=== PATIENT | male | born 1980 | race Hispanic/Latino ===

== ENCOUNTER 2018-10-09 16:03 | Emergency (ER) | payer SELFPAY ==
[2018-10-09] MEDS ORDERED: FENTANYL CITR 100 MCG/2 ML ONE ×2 (16:18→17:58)
--- NOTE | 2018-10-09 16:47 | RAD REPORT ---
EXAM DESCRIPTION: CT - CTHCSPWOC - 10/09/2018 4:32 pm CLINICAL HISTORY: Blunt force trauma to the head and neck, headache COMPARISON: None. TECHNIQUE: Axial 5 mm thick images of the head were obtained. Axial 2 mm thick images of the cervic al spine were obtained with sagittal and coronal reconstruction images generated and reviewed. All CT scans are performed using dose optimization technique as appropriate and may include automated exposure control or mA/KV adjustment according to patient size. FINDINGS: No intracranial hemorrhage, mass, edema or acute intracranial finding. Ventricles are normal. No extr a-axial fluid collections. Mastoid air cells and paranasal sinuses are clear. No globe or orbit abnor mality seen. Cervical body height and alignment are normal. No disk space narrowing. No fracture or acute bony abn ormality. Central canal detail is inherently limited. No paraspinal mass or hematoma. IMPRESSION: Negative CT head examination for acute or significant finding. Negative CT cervical spine examination for acute or significant finding.
--- NOTE | 2018-10-09 16:48 | RAD REPORT ---
EXAM DESCRIPTION: CT - Thorax Wo Con - 10/09/2018 4:32 pm CLINICAL HISTORY: Pain, chest trauma COMPARISON: None. TECHNIQUE: Axial 5 mm thick images of the chest were obtained without IV contrast. All CT scans are performed using dose optimization technique as appropriate and may include automated exposure control or mA/KV adjustment according to patient size. FINDINGS: No mass or infiltrate in the lung parenchyma. No pleural thickening or pleural effusion. N o pneumothorax. No abnormal mediastinal or hilar masses or lymphadenopathy seen. No gross aortic or pulmonary artery finding suspected. Assessment is limited in the absence of IV contrast. No chest wall mass or abnormal axillary lymphadenopathy. IMPRESSION: Negative non-contrast CT chest examination.
--- NOTE | 2018-10-09 17:35 | RAD REPORT ---
EXAM DESCRIPTION: RAD - Chest Single View - 10/09/2018 4:18 pm CLINICAL HISTORY: Chest pain, trauma COMPARISON: None. TECHNIQUE: AP portable chest image was obtained 1616 hours . FINDINGS: Lungs are clear. Heart and vasculature are normal. No measurable pleural effusion and no p neumothorax. No acute bony abnormality seen. No acute aortic findings suspected. IMPRESSION: No acute cardiopulmonary process.
--- NOTE | 2018-10-09 17:57 | ER ---
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 Care prior to arrival: Cervical collar in place. Placed on backboard. Mechanism of Injury: blunt force injury w/ ratchet to head/hard hat. Trauma event details: Injury occurred in the [facility], Injury occurred: in an industrial place of business Injury occurred: October 09, 2018. 16:07 Acuity: MASSIMO 2 ph 16:07 Method Of Arrival: EMS: [facility] 16:24 Transition of care: patient was not received from another setting of care. Onset of ph symptoms was October 09, 2018. Risk Assessment: Do you want to hurt yourself or someone else? Patient reports no desire to harm self or others. Initial Sepsis Screen: Does the patient meet any 2 criteria? No. Patient's initial sepsis screen is negative. Does the patient have a suspected source of infection? No. Patient's initial sepsis screen is negative. Trauma Activation: Alert Physician: ED Physician; Name: Dee Dee; Notified At: ; Arrived At: Physician: General Surgeon; Name: ; Notified At: ; Arrived At: Physician: Radiology; Name: Hemalatha; Notified At: ; Arrived At: Physician: Respiratory; Name: ; Notified At: ; Arrived At: Physician: Lab; Name: ; Notified At: ; Arrived At: Historical: - Allergies: 16:12 No Known Allergies; ph - Home Meds: 16:12 None [Active]; ph - PMHx: 16:12 None; ph - Immunization history: Last tetanus immunization: unknown. - Social history:: Smoking status: Patient/guardian denies using tobacco. - Ebola Screening: : No symptoms or risks identified at this time. Screenin:20 Abuse screen: Denies threats or abuse. Denies injuries from another. Tuberculosis ph screening: No symptoms or risk factors identified. 16:27 Nutritional screening: No deficits noted. Fall Risk No fall in past 12 months (0 pts). ph No secondary diagnosis (0 pts). IV access (20 points). Ambulatory Aid- None/Bed Rest/Nurse Assist (0 pts). Gait- Weak (10 pts.). Mental Status- Oriented to own ability (0 pts). Total Paz Fall Scale indicates No Risk (0-24 pts). Primary Survey: 16:16 NO uncontrolled hemorrhage observed. A: The patient is alert. Airway: patent, No ph supplemental oxygen in use on arrival. Oral cavity: clear, Trachea midline. Breathing/Chest: Respiratory pattern: regular, Respiratory effort: spontaneous, unlabored, Breath sounds: clear, bilaterally. Chest inspection: symmetrical rise and fall of the chest. Circulation: Pulses: palpable right radial artery, right dorsalis pedis artery, left radial artery and left dorsalis pedis artery. Disability Alert. Exposure/Environment: All clothing and personal items were removed. Forensic evidence collection is not deemed to be indicated at this time. Items placed in patient belonging bag. There is no evidence of uncontrolled external bleeding. A warming method has been applied: A warm blanket has been provided to the patient. 18:19 Reassessment Breathing/Chest Respiratory pattern Regular Respiratory effort Spontaneous ph Unlabored Breath sounds Clear Chest inspection Symmetrical Circulation Color [place] Temperature Warm Dry Disability Alert. Secondary Survey: 16:18 HEENT: Head Other no injury or deformity noted but pt c/o severe headache in frontal ph and occipital area. Gastrointestinal: No deficits noted. Abdomen is soft, flat, Bowel sounds present in all quadrants. Musculoskeletal: Circulation, motion, and sensation intact. Range of motion: intact in all extremities, Reports numbness in left side of head, left arm and left leg. Assessment: 16:10 General: Appears in no apparent distress. uncomfortable, well groomed, Behavior is ph cooperative, appropriate for age, anxious. Pain: Complains of pain in top of head, left parietal area, right parietal area and occipital area. Neuro: Level of Consciousness is awake, alert, obeys commands, Oriented to person, place, time, situation, Chief Jailer are weak on left Moves all extremities. Speech is normal, Facial symmetry appears normal, Pupils are PERRLA, paresthesias in left leg and left arm and left side of head Reports dizziness, headache. Cardiovascular: Capillary refill < 3 seconds in bilateral fingers Patient's skin is warm and dry. Pulses are all present. Respiratory: Airway is patent Respiratory effort is even, unlabored, Denies shortness of breath pain with respiration, pain with movement. GI: No signs and/or symptoms were reported involving the gastrointestinal system. Patient currently denies abdominal pain, nausea. Derm: Skin is intact, is healthy with good turgor, Skin is pink, warm \\T\\ dry. Musculoskeletal: Circulation, motion, and sensation intact. Range of motion: intact in all extremities. 16:17 Reassessment: Pt to CT now VIA stretcher. C collar remains in place. 16:58 Reassessment: Patient appears in no apparent distress at this time. Patient and/or ph family updated on plan of care and expected duration. Pain level reassessed. Patient is alert, oriented x 3, equal unlabored respirations, skin warm/dry/pink. Pt c/o pain in head 8/10 (down from 10/10) and requesting additional pain medication, denies nausea, ERP notified, see MAR. 17:23 Reassessment: Patient appears in no apparent distress at this time. Patient and/or ph family updated on plan of care and expected duration. Pain level reassessed. Patient is alert, oriented x 3, equal unlabored respirations, skin warm/dry/pink. Co-workers at bedside. 18:00 Reassessment: Report called to MELISSA Stover at [facility]. 18:15 Reassessment: Patient appears in no apparent distress at this time. Patient and/or ph family updated on plan of care and expected duration. Pain level reassessed. Patient is alert, oriented x 3, equal unlabored respirations, skin warm/dry/pink. Coworkers at bedside requesting that pt be released into their care, states, " Can he be released to us and we take him [place]?" Explained transfer process to pt and why that was not possible, pt agrees to be transferred. 18:21 Reassessment: Patient appears in no apparent distress at this time. Patient and/or ph family updated on plan of care and expected duration. Pain level reassessed. Neuro: Level of Consciousness is awake, alert, obeys commands, Oriented to person, place, time, situation, Chief Jailer are weak on left Moves all extremities. Reports headache paresthesias in left leg and left arm and left side of head. 18:46 Reassessment: EMS at bedside, pt refusing transfer at this time, states, " I want to ph leave in the care of my company." ERP notified and at bedside to speak w/ pt, pt continues to state that he wishes to be d/c into the care of employer, pt to leave AMA. 19:01 Reassessment: Patient appears in no apparent distress at this time. Patient is alert, ph oriented x 3, equal unlabored respirations, skin warm/dry/pink. Risks of leaving AMA explained to pt, pt continues to state that he wishes to leave in care of company/employer, AMA form signed by pt, pt left ED w/ c-collar in place. Vital Signs: 16:13 BP 115 / 57; Pulse 64; Resp 20; Temp 98.7; Pulse Ox 96% on R/A; Weight 90.72 kg; Height ph 5 ft. 8 in. (172.72 cm); Pain 10/10; 17:01 BP 118 / 66; Pulse 75; Resp 18; Pulse Ox 97% on R/A; Pain 8/10; ph 18:00 BP 120 / 87; Pulse 71; Resp 18; Pulse Ox 99% on R/A; ph 19:00 BP 118 / 68; Pulse 72; Resp 18; Temp 98.2; Pulse Ox 99% on R/A; ph 16:13 Body Mass Index 30.41 (90.72 kg, 172.72 cm) ph Radha Coma Score: 16:13 Eye Response: spontaneous(4). Verbal Response: oriented(5). Motor Response: obeys ph commands(6). Total: 15. 17:01 Eye Response: spontaneous(4). Verbal Response: oriented(5). Motor Response: obeys ph commands(6). Total: 15. 17:46 Eye Response: spontaneous(4). Verbal Response: oriented(5). Motor Response: obeys gs commands(6). Total: 15. 17:46 Eye Response: spontaneous(4). Verbal Response: oriented(5). Motor Response: obeys gs commands(6). Total: 15. 18:00 Eye Response: spontaneous(4). Verbal Response: oriented(5). Motor Response: obeys ph commands(6). Total: 15. 19:00 Eye Response: spontaneous(4). Verbal Response: oriented(5). Motor Response: obeys ph commands(6). Total: 15. Trauma Score (Adult): 16:13 Eye Response: spontaneous(1); Verbal Response: oriented(1); Motor Response: obeys ph commands(2); Systolic BP: > 89 mm Hg(4); Respiratory Rate: 10 to 29 per min(4); Radha Score: 15; Trauma Score: 12 17:01 Eye Response: spontaneous(1); Verbal Response: oriented(1); Motor Response: obeys ph commands(2); Systolic BP: > 89 mm Hg(4); Respiratory Rate: 10 to 29 per min(4); [place] Score: 15; Trauma Score: 12 18:00 Eye Response: spontaneous(1); Verbal Response: oriented(1); Motor Response: obeys ph commands(2); Systolic BP: > 89 mm Hg(4); Respiratory Rate: 10 to 29 per min(4); [place] Score: 15; Trauma Score: 12 19:00 Eye Response: spontaneous(1); Verbal Response: oriented(1); Motor Response: obeys ph commands(2); Systolic BP: > 89 mm Hg(4); Respiratory Rate: 10 to 29 per min(4); [place] Score: 15; Trauma Score: 12 ED Course: 16:04 Patient arrived in ED. bd 16:07 Deanna Murphy, MELISSA is Primary Nurse. ph 16:07 Dwayne Funez MD is Attending Physician. gs 16:12 Triage completed. ph 16:18 XRAY CXR (1 view) In Process Unspecified. EDMS 16:24 Arm band placed on. ph 16:25 Patient has correct armband on for positive identification. Bed in low position. Call ph light in reach. Side rails up X2. alarm security or surveillance monitor on. Pulse ox on. NIBP on. Warm blanket given. 16:26 Patient maintains SpO2 saturation greater than 95% on room air. Thermoregulation: warm ph blanket given to patient. 16:33 Head C Spine MPR Wo Con CT In Process Unspecified. EDMS 16:33 CT Chest Wo Con In Process Unspecified. EDMS 18:17 No provider procedures requiring assistance completed. Patient transferred, IV remains ph in place. Administered Medications: 16:10 Drug: fentaNYL (PF) 50 mcg Route: IVP; Site: right antecubital; ss 16:30 Follow up: Response: No adverse reaction; Pain is decreased ph 16:54 Drug: fentaNYL (PF) 50 mcg Route: IVP; Site: right antecubital; ph 17:15 Follow up: Response: No adverse reaction; Pain is decreased ph 17:56 Drug: fentaNYL (PF) 50 mcg Route: IVP; Site: right antecubital; ph 18:30 Follow up: Response: No adverse reaction; Pain is decreased ph Intake: 16:13 PO: 0ml; Total: 0ml. ph 17:01 PO: 0ml; Total: 0ml. ph 18:00 PO: 0ml; Total: 0ml. ph 19:00 PO: 0ml; Total: 0ml. ph Output: 16:13 Urine: 0ml; Total: 0ml. ph 17:01 Urine: 0ml; Total: 0ml. ph 18:00 Urine: 0ml; Total: 0ml. ph 19:00 Urine: 0ml; Total: 0ml. ph Outcome: 17:55 ER care complete, transfer ordered by . 19:16 AMA AMA form signed ph 19:16 Condition: Pt refusing transfer for further testing and is leaving AMA, VSS and GCS 15 when pt left ED 19:26 Patient left the ED. ph Signatures: Dispatcher [employer] EDMS Sophia Sanabria Shelby, RN RN Deanna Murphy RN RN ph Funez, MD BRUNA Rice Corrections: (The following items were deleted from the chart) 19:12 19:01 Reassessment: Patient appears in no apparent distress at this time. Patient is ph alert, oriented x 3, equal unlabored respirations, skin warm/dry/pink. AMA form signed by pt, pt left ED w/ c-collar in place ph 19:12 18:15 Reassessment: Patient appears in no apparent distress at this time. Patient ph and/or family updated on plan of care and expected duration. Pain level reassessed. Patient is alert, oriented x 3, equal unlabored respirations, skin warm/dry/pink. ph
--- NOTE | 2018-10-09 17:57 | EDPHYS ---
Physician Documentation [facility] Name: Britton Stone Age: 38 yrs Sex: Male : 1980 Arrival Date: 10/09/2018 Time: 16:04 Bed 3 Private MD: ED Physician Dwayne Funez HPI: 10/09 17:46 This 38 yrs old Male presents to ER via EMS with complaints of head injury. gs 17:46 The patient or guardian reports injury, wrench fell 50-75 feet hit pt in head was gs wearing hard hat. The complaints affect the top of head. Context of injury: The problem was sustained at work. Onset: The symptoms/episode began/occurred acutely, just prior to arrival. Associated signs and symptoms: Loss of consciousness: This patient experience a loss of consciousness, that was prolonged, for 1 minute(s). Severity of symptoms: At their worst the symptoms were severe, in the emergency department the symptoms have improved, markedly. The patient has not experienced similar symptoms in the past. Historical: - Allergies: 16:12 No Known Allergies; ph - Home Meds: 16:12 None [Active]; ph - PMHx: 16:12 None; ph - Immunization history: Last tetanus immunization: unknown. - Social history:: Smoking status: Patient/guardian denies using tobacco. - Ebola Screening: : No symptoms or risks identified at this time. ROS: 17:46 Neuro: Positive for tingling, weakness, of the left arm. gs 17:46 All other systems are negative. Exam: 17:46 Head/Face: Normocephalic, atraumatic. Eyes: Pupils equal round and reactive to light, gs extra-ocular motions intact. Lids and lashes normal. Conjunctiva and sclera are non-icteric and not injected. Cornea within normal limits. Periorbital areas with no swelling, redness, or edema. ENT: Nares patent. No nasal discharge, no septal abnormalities noted. Tympanic membranes are normal and external auditory canals are clear. Oropharynx with no redness, swelling, or masses, exudates, or evidence of obstruction, uvula midline. Mucous membranes moist. Neck: Trachea midline, no thyromegaly or masses palpated, and no cervical lymphadenopathy. Supple, full range of motion without nuchal rigidity, or vertebral point tenderness. No Meningismus. Chest/axilla: Normal chest wall appearance and motion. Nontender with no deformity. No lesions are appreciated. Cardiovascular: Regular rate and rhythm with a normal S1 and S2. No gallops, murmurs, or rubs. Normal PMI, no JVD. No pulse deficits. Respiratory: Lungs have equal breath sounds bilaterally, clear to auscultation and percussion. No rales, rhonchi or wheezes noted. No increased work of breathing, no retractions or nasal flaring. Abdomen/GI: Soft, non-tender, with normal bowel sounds. No distension or tympany. No guarding or rebound. No evidence of tenderness throughout. Back: No spinal tenderness. No costovertebral tenderness. Full range of motion. Skin: Warm, dry with normal turgor. Normal color with no rashes, no lesions, and no evidence of cellulitis. MS/ Extremity: Pulses equal, no cyanosis. Neurovascular intact. Full, normal range of motion. 17:46 Constitutional: The patient appears alert, awake. 17:46 Head/face: Noted is tenderness, that is mild, of the top of head. 17:46 Neuro: Orientation: is normal, to person, place, time \T\ situation. Memory: is normal, Cranial nerves: CN II- XII are normal as tested, Cerebellar function: is grossly normal, Motor: moves all fours, strength is 4/5 in the left hand, Sensation: tingling, that is moderate, of the left arm and left leg. Vital Signs: 16:13 BP 115 / 57; Pulse 64; Resp 20; Temp 98.7; Pulse Ox 96% on R/A; Weight 90.72 kg; Height ph 5 ft. 8 in. (172.72 cm); Pain 10/10; 17:01 BP 118 / 66; Pulse 75; Resp 18; Pulse Ox 97% on R/A; Pain 8/10; ph 18:00 BP 120 / 87; Pulse 71; Resp 18; Pulse Ox 99% on R/A; ph 19:00 BP 118 / 68; Pulse 72; Resp 18; Temp 98.2; Pulse Ox 99% on R/A; ph 16:13 Body Mass Index 30.41 (90.72 kg, 172.72 cm) ph Radha Coma Score: 16:13 Eye Response: spontaneous(4). Verbal Response: oriented(5). Motor Response: obeys ph commands(6). Total: 15. 17:01 Eye Response: spontaneous(4). Verbal Response: oriented(5). Motor Response: obeys ph commands(6). Total: 15. 17:46 Eye Response: spontaneous(4). Verbal Response: oriented(5). Motor Response: obeys gs commands(6). Total: 15. 17:46 Eye Response: spontaneous(4). Verbal Response: oriented(5). Motor Response: obeys gs commands(6). Total: 15. 18:00 Eye Response: spontaneous(4). Verbal Response: oriented(5). Motor Response: obeys ph commands(6). Total: 15. 19:00 Eye Response: spontaneous(4). Verbal Response: oriented(5). Motor Response: obeys ph commands(6). Total: 15. Trauma Score (Adult): 16:13 Eye Response: spontaneous(1); Verbal Response: oriented(1); Motor Response: obeys ph commands(2); Systolic BP: > 89 mm Hg(4); Respiratory Rate: 10 to 29 per min(4); Radha Score: 15; Trauma Score: 12 17:01 Eye Response: spontaneous(1); Verbal Response: oriented(1); Motor Response: obeys ph commands(2); Systolic BP: > 89 mm Hg(4); Respiratory Rate: 10 to 29 per min(4); Radha Score: 15; Trauma Score: 12 18:00 Eye Response: spontaneous(1); Verbal Response: oriented(1); Motor Response: obeys ph commands(2); Systolic BP: > 89 mm Hg(4); Respiratory Rate: 10 to 29 per min(4); [place] Score: 15; Trauma Score: 12 19:00 Eye Response: spontaneous(1); Verbal Response: oriented(1); Motor Response: obeys ph commands(2); Systolic BP: > 89 mm Hg(4); Respiratory Rate: 10 to 29 per min(4); Radha Score: 15; Trauma Score: 12 MDM: 16:15 Patient medically screened. gs 17:46 Differential diagnosis: Contusion of Intracranial bleed- Concussion cerebral contusion, gs ligamentous spinal injury. Data reviewed: vital signs, nurses notes. Response to treatment: the patient's symptoms have markedly improved after treatment, and as a result, I will transfer. 10/09 16:05 Order name: Head C Spine MPR Wo Con CT; Complete Time: 17:33 bd 10/09 16:07 Order name: CT Chest Wo Con; Complete Time: 17:33 gs 10/09 16:12 Order name: XRAY CXR (1 view); Complete Time: 17:45 gs Administered Medications: 16:10 Drug: fentaNYL (PF) 50 mcg Route: IVP; Site: right antecubital; ss 16:30 Follow up: Response: No adverse reaction; Pain is decreased ph 16:54 Drug: fentaNYL (PF) 50 mcg Route: IVP; Site: right antecubital; ph 17:15 Follow up: Response: No adverse reaction; Pain is decreased ph 17:56 Drug: fentaNYL (PF) 50 mcg Route: IVP; Site: right antecubital; ph 18:30 Follow up: Response: No adverse reaction; Pain is decreased ph Disposition: 10/09/18 19:26 Patient has left against medical advice. - Patients states they are going to Home. - Condition is Undetermined. Signatures: Dispatcher [employer] EDMariaelena Gann RN RN ss Deanna Murphy RN RN Dwayne Funez MD MD Corrections: (The following items were deleted from the chart) : 17:55 10/09/2018 17:55 Transfer ordered to [facility]. ph Diagnosis is Concussion with loss of consciousness of 30 minutes or less; Mononeuropathies of upper limb; Mononeuropathies of lower limb. Reason for transfer: Higher level of care. Accepting physician is geoff. Condition is Stable. Problem is new. Symptoms have improved. 19:26 19:26 10/09/2018 19:26 Patients has left against medical advice. Patient states they ph are going to Home. Condition is Undetermined. ph
== END 2018-10-09 19:26 | disposition left against medical advice (07) ==
LOC: ER 16:03
DX: S09.90XA Unspecified injury of head, initial encounter (principal); W22.8XXA Striking against or struck by other objects, initial encounter; Y93.89 Activity, other specified; Y92.89 Other specified places as the place of occurrence of the external cause; Y99.8 Other external cause status
CPT/HCPCS: 70450; 71045; 71250; 72125; 96374; 99285; J3010

== ENCOUNTER 2018-10-11 07:46 | Emergency (ER) | payer SELFPAY ==
[2018-10-11] MEDS ORDERED: HYDROCODONE/APAP 7.5/325 MG TAB ONE (08:39)
--- NOTE | 2018-10-11 11:22 | RAD REPORT ---
EXAM DESCRIPTION: MRI - Brain Wo Cont - 10/11/2018 11:12 am CLINICAL HISTORY: Trauma;Headache COMPARISON: Head C Spine Mpr Wo Con dated 10/09/2018; Thorax Wo Con dated 10/09/2018 TECHNIQUE: Multi-sequence, multiplanar MR imaging of the brain was performed without contrast. FINDINGS: No intracranial hemorrhage, hydrocephalus or extra-axial fluid collections. No edema or sh ift of midline structures. No findings to suspect brain mass. DWI is negative for acute CVA. Midline structures are normally formed. Mastoid air cells and paranasal sinuses are clear. IMPRESSION: No acute or concerning intracranial abnormalities.
--- NOTE | 2018-10-11 11:29 | ER ---
Nurse's Notes [facility] Name: Britton Stone Age: 38 yrs Sex: Male : 1980 Arrival Date: 10/11/2018 Time: 07:49 Bed 6 Private MD: None, None Diagnosis: Headache;Concussion Presentation: 10/11 07:55 Presenting complaint: Patient states: i was here Thursday, for the same problem, hj headache (related to head injury), CT was negative; now my headache is worse; 8/10 pain; neck hurts, tingling to arms and legs; reports nausea; denies taking pain meds [employer]; per pt, MRI not done;. Transition of care: patient was not received from another setting of care. Onset of symptoms was October 11, 2018. Risk Assessment: Do you want to hurt yourself or someone else? Patient reports no desire to harm self or others. Initial Sepsis Screen: Does the patient meet any 2 criteria? No. Patient's initial sepsis screen is negative. Does the patient have a suspected source of infection? No. Patient's initial sepsis screen is negative. Care prior to arrival: None. 07:55 Method Of Arrival: Ambulatory 07:55 Acuity: MASSIMO 3 hj Triage Assessment: 07:58 Headache History: Denies prior headaches. General: Appears in no apparent distress. hj uncomfortable, Behavior is calm, cooperative, appropriate for age. Pain: Complains of pain in head Pain currently is 7 out of 10 on a pain scale. Pain began 2-3 days ago. Also complains of nausea. Neuro: Level of Consciousness is awake, alert, obeys commands, Oriented to person, place, time, situation, Appropriate for age. Historical: - Allergies: 07:58 No Known Allergies; hj - Home Meds: 07:58 None [Active]; hj - PMHx: 07:58 None; hj - PSHx: 07:58 None; hj - Immunization history:: Adult Immunizations up to date. - Social history:: Smoking status: Patient/guardian denies using tobacco, Patient/guardian denies using alcohol. - Ebola Screening: : Patient negative for fever greater than or equal to 101.5 degrees Fahrenheit, and additional compatible Ebola Virus Disease symptoms Patient denies exposure to infectious person Patient denies travel to an Ebola-affected area in the 21 days before illness onset. Screenin:59 Abuse screen: Denies threats or abuse. Denies injuries from another. Nutritional hj screening: No deficits noted. Tuberculosis screening: No symptoms or risk factors identified. Fall Risk None identified. Assessment: 08:05 General: Appears in no apparent distress. uncomfortable, Behavior is calm, cooperative, ca1 appropriate for age. Pain: Complains of pain in head, neck Pain currently is 9 out of 10 on a pain scale. Quality of pain is described as. Pain: Pain began 1900H, 10/10/2018. Neuro: Level of Consciousness is awake, alert, obeys commands, Oriented to person, place, time, situation. Cardiovascular: Heart tones S1 S2 Capillary refill < 3 seconds Patient's skin is warm and dry. Respiratory: Airway is patent Trachea midline Respiratory effort is even, unlabored, Respiratory pattern is regular, symmetrical, Breath sounds are clear bilaterally. GI: Abdomen is round non-distended, Bowel sounds present X 4 quads. Abd is soft and non tender X 4 quads. Reports vomiting, once. : No signs and/or symptoms were reported regarding the genitourinary system. EENT: No signs and/or symptoms were reported regarding the EENT system. Derm: Skin is intact, is healthy with good turgor, Skin is pink, warm \T\ dry. Musculoskeletal: Circulation, motion, and sensation intact. Capillary refill < 3 seconds, Range of motion: intact in all extremities. 08:41 Reassessment: Patient appears in no apparent distress at this time. Patient and/or ca1 family updated on plan of care and expected duration. Pain level reassessed. Patient is alert, oriented x 3, equal unlabored respirations, skin warm/dry/pink. 09:27 Reassessment: Patient appears in no apparent distress at this time. Patient and/or ca1 family updated on plan of care and expected duration. Pain level reassessed. Patient is alert, oriented x 3, equal unlabored respirations, skin warm/dry/pink. Awaiting MRI. Called MRI, said it will be around 1000H. Informed patient. 10:05 Reassessment: Patient went to restroom. Still for MRI. ca1 10:15 Reassessment: patient taken to MRI by wheelchair. ca1 11:08 Reassessment: Patient appears in no apparent distress at this time. Patient is alert, ca1 oriented x 3, equal unlabored respirations, skin warm/dry/pink. Patient back from MRI. Vital Signs: 07:59 BP 140 / 78; Pulse 82; Resp 18; Temp 97.7(TE); Pulse Ox 99% on R/A; Weight 90.72 kg; hj Height 5 ft. 8 in. (172.72 cm); Pain 8/10; 08:41 BP 106 / 72; Pulse 72; Resp 19; Pulse Ox 100% on R/A; Pain 9/10; ca1 09:27 BP 125 / 80; Pulse 80; Resp 18; Pulse Ox 96% on R/A; ca1 10:05 BP 114 / 68; Pulse 82; Resp 19; Pulse Ox 100% on R/A; Pain 9/10; ca1 11:11 BP 111 / 61; Pulse 60; Resp 19; Pulse Ox 100% on R/A; ca1 07:59 Body Mass Index 30.41 (90.72 kg, 172.72 cm) hj Radha Coma Score: 08:35 Eye Response: spontaneous(4). Verbal Response: oriented(5). Motor Response: obeys kb commands(6). Total: 15. 08:37 Eye Response: spontaneous(4). Verbal Response: oriented(5). Motor Response: obeys kb commands(6). Total: 15. ED Course: 07:49 Patient arrived in ED. mr 07:49 None, None is Private Physician. mr 07:58 Triage completed. hj 07:59 Arm band placed on right wrist. hj 07:59 Patient has correct armband on for positive identification. Bed in low position. Call light in reach. Side rails up X 1. 08:04 Jazmyn Stover FNP-C [facility]. kb 08:04 Grant Zeigler MD is Attending Physician. kb 08:05 Reema Pickard, MELISSA is Primary Nurse. ca1 08:05 Pulse ox on. NIBP on. ca1 11:13 MRI - Brain Wo Cont In Process Unspecified. EDMS 11:50 No provider procedures requiring assistance completed. ca1 11:50 Patient did not have IV access during this emergency room visit. ca1 Administered Medications: 08:29 Drug: [place] (7.5 mg-325 mg) 1 tabs Route: PO; ca1 10:05 Follow up: Response: No adverse reaction; Pain is unchanged, physician notified ca1 Outcome: 11:28 Discharge ordered by MD. cabrera 11:50 Discharged to home ambulatory. ca1 11:50 Condition: stable 11:50 Discharge instructions given to patient, Instructed on discharge instructions, follow up and referral plans. medication usage, Demonstrated understanding of instructions, follow-up care, medications, Prescriptions given X 1. 11:56 Patient left the ED. aa5 Signatures: Dispatcher [employer] EDMS Jazmyn Stover, LAWYERS-C LAWYERS-Loyda Preethi Shaikh, Carli, RN RN aa5 Seth Aponte, RN RN Reema Pickard RN RN ca1 Corrections: (The following items were deleted from the chart) 08:10 07:55 Presenting complaint: Patient states: i was here Thursday, for the same problem, hj headache (related to head injury), CT was negative; now my headache is worse; 8/10 pain; neck hurts, tingling to arms and legs; reports nausea; denies taking pain meds [employer]; hj 10:23 10:15 Reassessment: patient taken to by wheelchair. ca1 ca1
--- NOTE | 2018-10-11 11:29 | EDPHYS ---
Physician Documentation [facility] Name: Britton Stone Age: 38 yrs Sex: Male : 1980 Arrival Date: 10/11/2018 Time: 07:49 Bed 6 Private MD: None, None ED Physician Grant Ziegler HPI: 10/11 08:37 This 38 yrs old Male presents to ER via Ambulatory with complaints of Headache.kb 08:37 The patient or guardian reports injury, pain, tenderness. The complaints affect the kb left side of head. Context of injury: The problem was sustained at work, resulted from a direct blow, wrench that fell 50ft. Onset: The symptoms/episode began/occurred 2 day(s) ago. Associated signs and symptoms: Loss of consciousness: This patient experience a loss of consciousness, for 1 minute(s), Pertinent positives: loss of conciousness, headache, injury, tingling to left arm and leg. Severity of symptoms: At their worst the symptoms were moderate, in the emergency department the symptoms are unchanged. The patient has not experienced similar symptoms in the past. The patient has been recently seen at the [facility] Emergency Department, for similar complaints CT scan was performed, 2 days ago. Pt states a wrench fell 50 ft and hit him in the head on Thursday. States he was wearing a hard hat. +LOC at the time for approx 1 min. Was brought here and had CT head, c-spine and chest done, all WNL. Was going to be transferred to [facility] for MRI to further evaluate trauma, but reports the [facility]son talked him out of going and said their doctors would do the same thing so he shouldn't go to [place] for it. States he went to their doctors and was given aspirin. States the pain has just gotten worse since then. Edson told him he should go back to their doctor for the pain, but he wanted to come here instead. Reports continued pain to head and tingling to left arm and leg. . Historical: - Allergies: 07:58 No Known Allergies; hj - Home Meds: 07:58 None [Active]; hj - PMHx: 07:58 None; hj - PSHx: 07:58 None; hj - Immunization history:: Adult Immunizations up to date. - Social history:: Smoking status: Patient/guardian denies using tobacco, Patient/guardian denies using alcohol. - Ebola Screening: : Patient negative for fever greater than or equal to 101.5 degrees Fahrenheit, and additional compatible Ebola Virus Disease symptoms Patient denies exposure to infectious person Patient denies travel to an Ebola-affected area in the 21 days before illness onset. ROS: 08:35 Constitutional: Negative for fever, chills, and weight loss, Eyes: Negative for injury, kb pain, redness, and discharge, ENT: Negative for injury, pain, and discharge, Neck: Negative for injury, pain, and swelling, Cardiovascular: Negative for chest pain, palpitations, and edema, Respiratory: Negative for shortness of breath, cough, wheezing, and pleuritic chest pain, Abdomen/GI: Negative for abdominal pain, nausea, vomiting, diarrhea, and constipation, Back: Negative for injury and pain, : Negative for injury, bleeding, discharge, and swelling, MS/Extremity: Negative for injury and deformity, Skin: Negative for injury, rash, and discoloration. 08:35 Neuro: Positive for headache, loss of consciousness, tingling, of the left side of head. Exam: 08:36 Constitutional: This is a well developed, well nourished patient who is awake, alert, kb and in no acute distress. Head/Face: Normocephalic, atraumatic. Eyes: Pupils equal round and reactive to light, extra-ocular motions intact. Lids and lashes normal. Conjunctiva and sclera are non-icteric and not injected. Cornea within normal limits. Periorbital areas with no swelling, redness, or edema. ENT: Nares patent. No nasal discharge, no septal abnormalities noted. Tympanic membranes are normal and external auditory canals are clear. Oropharynx with no redness, swelling, or masses, exudates, or evidence of obstruction, uvula midline. Mucous membranes moist. Neck: Trachea midline, no thyromegaly or masses palpated, and no cervical lymphadenopathy. Supple, full range of motion without nuchal rigidity, or vertebral point tenderness. No Meningismus. Chest/axilla: Normal chest wall appearance and motion. Nontender with no deformity. No lesions are appreciated. Cardiovascular: Regular rate and rhythm with a normal S1 and S2. No gallops, murmurs, or rubs. Normal PMI, no JVD. No pulse deficits. Respiratory: Lungs have equal breath sounds bilaterally, clear to auscultation and percussion. No rales, rhonchi or wheezes noted. No increased work of breathing, no retractions or nasal flaring. Abdomen/GI: Soft, non-tender, with normal bowel sounds. No distension or tympany. No guarding or rebound. No evidence of tenderness throughout. Back: No spinal tenderness. No costovertebral tenderness. Full range of motion. Skin: Warm, dry with normal turgor. Normal color with no rashes, no lesions, and no evidence of cellulitis. MS/ Extremity: Pulses equal, no cyanosis. Neurovascular intact. Full, normal range of motion. 08:36 Neuro: Orientation: is normal, Mentation: is normal, Memory: is normal, Cranial nerves: grossly normal, Cerebellar function: is grossly normal, Motor: moves all fours, strength is 4/5 in the left arm, Sensation: tingling, that is moderate, of the left arm and left leg, Gait: is steady, at a normal pace, without difficulty. Vital Signs: 07:59 BP 140 / 78; Pulse 82; Resp 18; Temp 97.7(TE); Pulse Ox 99% on R/A; Weight 90.72 kg; Height 5 ft. 8 in. (172.72 cm); Pain 8/10; 08:41 BP 106 / 72; Pulse 72; Resp 19; Pulse Ox 100% on R/A; Pain 9/10; ca1 09:27 BP 125 / 80; Pulse 80; Resp 18; Pulse Ox 96% on R/A; ca1 10:05 BP 114 / 68; Pulse 82; Resp 19; Pulse Ox 100% on R/A; Pain 9/10; ca1 11:11 BP 111 / 61; Pulse 60; Resp 19; Pulse Ox 100% on R/A; ca1 07:59 Body Mass Index 30.41 (90.72 kg, 172.72 cm) Radha Coma Score: 08:35 Eye Response: spontaneous(4). Verbal Response: oriented(5). Motor Response: obeys kb commands(6). Total: 15. 08:37 Eye Response: spontaneous(4). Verbal Response: oriented(5). Motor Response: obeys kb commands(6). Total: 15. MDM: 08:04 Patient medically screened. kb 08:35 Data reviewed: vital signs, nurses notes. Data interpreted: Pulse oximetry: on room air kb is 99 %. Interpretation: normal. 11:26 Counseling: I had a detailed discussion with the patient and/or guardian regarding: the kb historical points, exam findings, and any diagnostic results supporting the discharge/admit diagnosis, radiology results, the need for outpatient follow up, a family practitioner, to return to the emergency department if symptoms worsen or persist or if there are any questions or concerns that arise at home. 10/11 08:11 Order name: MRI - Brain Wo Cont; Complete Time: 11:22 kb Administered Medications: 08:29 Drug: [place] (7.5 mg-325 mg) 1 tabs Route: PO; ca1 10:05 Follow up: Response: No adverse reaction; Pain is unchanged, physician notified ca1 Disposition: 17:56 Co-signature as Attending Physician, Grant Ziegler MD Available for consultation at ps1 all times. . Disposition: 10/11/18 11:28 Discharged to Home. Impression: Headache, Concussion. - Condition is Stable. - Discharge Instructions: Head Injury, Adult, [id number]. - Prescriptions for Tramadol 50 mg Oral Tablet - take 1 tablet by ORAL route every 8 hours as needed; 12 tablet. - Medication Reconciliation Form, Thank You Letter, Antibiotic Education, Prescription Opioid Use, Work release form form. - Follow up: Emergency Department; When: As needed; Reason: Worsening of condition. Follow up: Private Physician; When: 2 - 3 days; Reason: Recheck today's complaints, Continuance of care, Re-evaluation by your physician. Signatures: Dispatcher [employer] RICARDOMO Jazmyn Stover, FINANCE ADMINISTRATOR-C FINANCE ADMINISTRATOR-Carli Cannon RN RN aa5 Seth Aponte RN RN hj Singer, Phillip, MD MD ps1 Reema Pickard RN RN ca1 Corrections: (The following items were deleted from the chart) 11:56 11:28 10/11/2018 11:28 Discharged to Home. Impression: Headache; Concussion. Condition aa5 is Stable. Forms are Medication Reconciliation Form, Thank You Letter, Antibiotic Education, Prescription Opioid Use. Follow up: Emergency Department; When: As needed; Reason: Worsening of condition. Follow up: Private Physician; When: 2 - 3 days; Reason: Recheck today's complaints, Continuance of care, Re-evaluation by your physician. kb
== END 2018-10-11 11:56 | disposition home or self-care (01) ==
LOC: ER 07:46
DX: S06.0X9A Concussion with loss of consciousness of unspecified duration, initial encounter (principal); W20.8XXA Other cause of strike by thrown, projected or falling object, initial encounter; Y93.89 Activity, other specified; Y92.69 Other specified industrial and construction area as the place of occurrence of the external cause; Y99.0 Civilian activity done for income or pay
CPT/HCPCS: 70551; 99284